=== PATIENT | female | born 1980 | race African-American/Black ===

== ENCOUNTER 2020-02-09 17:22 | Emergency (ER) | payer MEDICAID ==
[~2020-02-09] VITALS: Ht 167.6 cm; Wt 77.1 kg
[2020-02-09 17:30] VITALS: BP_SYST 127
[2020-02-09 17:59] VITALS: BP_SYST 127
== END 2020-02-09 18:00 | disposition home or self-care (01) ==
LOC: SED 17:22
DX: M54.30 Sciatica, unspecified side (principal)
CPT/HCPCS: 99283